=== PATIENT | male | born 1935 | race Caucasian/White ===

== ENCOUNTER 2019-06-04 16:25 | Emergency (ER) | payer OTHER ==
[2019-06-04 17:10] VITALS: BP 167/73
== END 2019-06-04 17:11 | disposition left against medical advice (07) ==
LOC: UCCORT 16:25 → EDBD 16:25 → UCCORT 17:11
DX: Z53.21 Procedure and treatment not carried out due to patient leaving prior to being seen by health care provider (principal)

== ENCOUNTER 2019-06-04 16:55 | Emergency (ER) | payer MEDICARE, OTHER ==
[2019-06-04 18:51] VITALS: BP 148/68
--- NOTE | 2019-06-04 19:21 | UC ---
Skin Complaint HPI - HPI Summary HPI Summary: 84-year-old male presents to urgent care reporting a nontender "lump" to the top of his left foot that he discovered yesterday. States it is nontender and mobile. Denies fever, chills, erythema, or drainage. - History of Current Complaint Chief Complaint: UCLowerExtremity Time Seen by Provider: 06/04/19 19:07 Stated Complaint: LUMP ON FOOT Hx Obtained From: Patient Pain Intensity: 0 - Allergy/Home Medications Allergies/Adverse Reactions: Allergies Allergy/AdvReac Type Severity Reaction Status Date / Time No Known Allergies Allergy Verified 06/04/19 18:47 Home Medications: Home Medications Lisinopril TAB* [Prinivil TAB*] 10 mg PO DAILY 06/04/19 [History Confirmed 06/03] [place]-3 Fatty Acids (Nf) [Fish Oil (NF)] 1,000 mg PO DAILY 06/04/19 [History Confirmed 06/04/19] Vitamin THERAPEUTIC TAB* [Theragran TAB*] 1 tab PO DAILY 06/04/19 [History Confirmed 06/04/19] PMH/Surg Hx/FS Hx/Imm Hx Cardiovascular History: Hypertension - Surgical History Surgical History: Yes Surgery Procedure, Year, and Place: Right Inguinal Herniorrhaphy, 2019 - Social History Alcohol Use: None Substance Use Type: None Smoking Status (MU): Never Smoked Tobacco Review of Systems All Other Systems Reviewed And Are Negative: Yes Constitutional: Negative: Fever, Chills Skin: Positive: Other - See HPI Respiratory: Positive: Negative Cardiovascular: Positive: Negative Gastrointestinal: Positive: Negative Genitourinary: Positive: Negative Motor: Positive: Negative Neurovascular: Positive: Negative Musculoskeletal: Positive: Negative Neurological/Mental Status: Positive: Negative Is Patient Immunocompromised?: No Physical Exam - Summary Physical Exam Summary: GENERAL APPEARANCE: Well developed, well nourished, alert and cooperative, and appears to be in no acute distress. CARDIAC: Normal S1 and S2. No S3, S4 or murmurs. Rhythm is regular. There is no peripheral edema, cyanosis or pallor. Extremities are warm and well perfused. Capillary refill is less than 2 seconds. Peripheral pulses intact. LUNGS: Clear to auscultation without rales, rhonchi, wheezing or diminished breath sounds. ABDOMEN: Positive bowel sounds. Soft, nondistended, nontender. No guarding or rebound. No masses or hepatosplenomegally. MUSKULOSKELETAL: ROM intact to all extremities. No joint erythema or tenderness. Normal muscular development. Normal gait. EXTREMITIES: 1 cm smooth, round, rubbery, mobile non-tender lesion to the dorsum of the left foot without erythema or induration. SKIN: Skin normal color, texture and turgor. Triage Information Reviewed: Yes Vital Signs: Initial Vital Signs Temp 98.3 F 06/04/19 18:46 Pulse 66 06/04/19 18:46 Resp 18 06/04/19 18:46 BP 148/68 06/04/19 18:46 Pulse Ox 96 06/04/19 18:46 Vital Signs Reviewed: Yes Course/Dx - Course Course Of Treatment: 84-year-old male presents to urgent care reporting a nontender "lump" to the top of his left foot that he discovered yesterday. States it is nontender and mobile. Denies fever, chills, erythema, or drainage. Afebrile. Mildly hypertensive otherwise vital signs stable. Patient had a 1 cm smooth, round, rubbery, mobile non-tender lesion to the dorsum of the left foot without erythema or induration distant with a ganglion cyst. Discussed with the patient that these are typically benign lesions and may resolve on their own although considering the location it may need to be removed surgically if it becomes bothersome or irritated by his shoe. He is to follow-up with his primary care provider or general surgery as needed. Anticipatory guidance and warning symptoms were reviewed with the patient. Verbalizes understanding and agrees with plan of care. - Differential Diagnoses - Skin Complaint Differential Diagnoses: Abscess, Cellulitis, Contact Dermatitis, MRSA, Tinea - Diagnoses Provider Diagnosis: Ganglion cyst of left foot Discharge ED - Sign-Out/Discharge Documenting (check all that apply): Patient Departure All imaging exams completed and their final reports reviewed: No Studies - Discharge Plan Condition: Stable Disposition: HOME Patient Education Materials: Ganglion Cysts (ED) Referrals: No Primary Care Phys,NOPCP [Primary Care Provider] - Thong Valdez MD [Medical Doctor] - Additional Instructions: The lump on her foot is a benign lesion called a ganglion cyst. These will sometimes resolve on their own however if it becomes bothersome if they need to be surgically removed. Do not try to pop or open the cyst as this could introduce infection. Follow-up with your primary care provider or with general surgery if the cyst becomes bothersome. Seek immediate medical attention if the cyst becomes painful, red, or increases in size. - Billing Disposition and Condition Condition: STABLE Disposition: Home - Attestation Statements Provider Attestation: This patient was not seen by me. I was available for consult. Chart reviewed. KIRTI
== END 2019-06-04 19:53 | disposition home or self-care (01) ==
LOC: UCCORT 16:55
DX: M67.472 Ganglion, left ankle and foot (principal); I10 Essential (primary) hypertension; Z79.899 Other long term (current) drug therapy
CPT/HCPCS: 99211; G0463